=== PATIENT | female | born 1975 | race Caucasian/White ===

== ENCOUNTER → 2016-11-24 | Outpatient (CLI) | payer BC ==
--- NOTE | 2016-11-24 10:06 | DI ---
Indication: ITS.REASON: R10.11 RUQ PAIN PROCEDURE: US GALLBLADDER: Encounter: Initial Comparison: None Technique: Grayscale and color Doppler sonographic imaging of the right upper quadrant of the abdomen was performed. Findings: Hepatic parenchyma is enlarged measuring 21.9 cm in diameter with increased echogenicity and sonographic density without evidence for focal mass. The gallbladder shows echogenic sludge and stone debris without wall thickening. There is no pericholecystic fluid or sonographic Cantu's sign. Both the intra and extrahepatic biliary system are of normal caliber with the common duct measuring 5 mm in dimension. Visualized portions of the head and body of the pancreas are unremarkable. The right kidney is present without collecting system dilatation. The right kidney measures 12.7 cm in length. Impression: 1. Hepatomegaly and hepatic steatosis. 2. Cholelithiasis without sonographic evidence of acute cholecystitis. .
== END ==
LOC: IMA 09:17
PROVIDERS: ATTEND Internal Medicine
DX: K76.0 Fatty (change of) liver, not elsewhere classified (principal); R10.11 Right upper quadrant pain; K80.20 Calculus of gallbladder without cholecystitis without obstruction

== ENCOUNTER → 2016-12-01 | Outpatient (CLI) | payer BC ==
[~2016-12-01] MED LIST: SALINE FLUSH 10ml SYRINGE ONE; SINCALIDE 5 MCG/VIAL IJ ONE; SODIUM CHLORIDE (Bacteriostatic) 30ml VIAL ONE
--- NOTE | 2016-12-01 11:38 | DI ---
Indication: ITS.REASON: R10.11 RUQ ABD PAIN PROCEDURE: NM HEPATOBIL/EF: Encounter: Initial Comparison: Gallbladder ultrasound dated November 24, 2016 Technique: 6.1 mCi of Tc-99m mebrofenin was injected intravenously. At approximately 61 minutes following this administration, 3 mcg of Kinevac was administered intravenously. Anterior planar images were obtained and a time/activity curve was calculated. FINDINGS: Radiotracer uptake is seen homogenously within the liver. There is normal clearance of radiotracer from the blood pool. The common bile duct is visualized at approximately 7 minutes. The gallbladder is visualized by 9 minutes, and radiotracer is excreted into the small bowel. There is no evidence of radiotracer outside the biliary or gastrointestinal tract. The gallbladder ejection fraction is decreased at 8%. IMPRESSION: 1. Gallbladder visualization excluding acute cholecystitis. 2. Decreased gallbladder ejection fraction of 8%, consistent with biliary dyskinesia. .
== END ==
LOC: IMA 08:34
PROVIDERS: ATTEND Internal Medicine
DX: K82.8 Other specified diseases of gallbladder (principal); R10.11 Right upper quadrant pain
CPT/HCPCS: 78227; A9537; J2805